=== PATIENT | female | born 1945 | race Caucasian/White ===

== ENCOUNTER 2018-01-09 08:17 | Observation (INO) | payer OTHER ==
[~2018-01-09] VITALS: Ht 162.6 cm; Wt 105.2 kg
[2018-01-09] VITALS (15 sets, daily range): BP systolic 138–168; BP diastolic 45–77
[~2018-01-09 08:17] MED LIST: ALDACTONE50 MG PO; ALLOPURINOL 10100 M1 PO; COZAAR100 MG PO; FLEXERIL PO; LOPID600 MG PO; TOPROL XL25 MG PO; TRAZODONE HCL50 MG PO
[2018-01-09 09:03] LABS: HEMATOCRIT 37.4 % (37.0-47.0); HEMOGLOBIN 12.6 gm/dL (12.0-15.0); MCH 32.8 pg (26.0-34.0); MCHC 33.5 g/dL (28.0-37.0); MCV 97.9 fL (80.0-100.0); MPV 8.2 fl. (7.2-11.1); RBC 3.83 mil/uL (4.20-5.00); RDW-CV 13.7 % (10.5-14.5); WBC 4.6 thou/uL (4.0-11.0)
[2018-01-09 09:22] LABS: APTT 22.7 Seconds (25.0-31.3); INR 1.1; PROTIME 10.3 Seconds (9.20-11.50)
[2018-01-09 09:25] LABS: ANION GAP 9 mmol/L (7-16); BUN 27 mg/dL (7-18); CHLORIDE 107 mmol/L (98-107); CO2 25 mmol/L (21-32); CREATININE 1.1 mg/dL (0.6-1.3); GLUCOSE 119 mg/dL (70-99); POTASSIUM 4.3 mmol/L (3.5-5.1); SODIUM 141 mmol/L (136-145)
[2018-01-09 09:30] LABS: ALBUMIN 3.5 g/dL (3.4-5.0); ALKALINE PHOSPHATASE 63 U/L (46-116); CHOLESTEROL 206 mg/dL (<200); HDL CHOLESTEROL 42 mg/dL (>40); LDL CHOLESTEROL 146 mg/dL (<100); SGOT 28 U/L (15-37); SGPT 46 U/L (30-65); TC:HDL 4.9 Ratio (Not establshd); TOTAL BILIRUBIN 0.5 mg/dL (<0.1-1.0); TOTAL PROTEIN 6.9 g/dL (6.4-8.2); TRIGLYCERIDE 93 mg/dL (<150); VLDL 19 mg/dL (<40)
[2018-01-09 09:31] LABS: SERUM ASSESSMENT Clear
--- NOTE | 2018-01-09 11:33 | EKG ---
[place] [address] ELECTROCARDIOGRAM REPORT Name: MARK HINDS Room: [facility]#: [id number] Admission: 01/09/18 Attend Phys: Bertin Van MD Discharge: Date of : 47 Report #: [id number] THIS REPORT FOR: //name// [facility] Test Date: 2018-01-09 Test Time: 09:46:33 Pat Name: MARK HINDS Department: Room: Gender: F Quarter Backer: : 1945 Requested By: Bertin Van Order Number: [id number] Reading MD: Bertin Van Measurements Intervals [place] Rate: 70 P: 74 [place]: 193 QRS: 22 QRSD: 102 T: -19 QT: 409 QTc: 442 Interpretive Statements Sinus rhythm Low voltage, precordial leads Borderline repolarization abnormality No previous ECG available for comparison Electronically Signed On 01-09-2018 11:33:09 CDT by Bertin Van [email or web address] <ELECTRONICALLY SIGNED> By: Bertin Van MD, [facility] 01/09/18 1133 Bertin Van MD, [facility] /EPI
--- NOTE | 2018-01-09 17:13 | CARD ---
[address] [address] CARDIAC CATH REPORT Name: MARK HINDS Room: [address] IN [facility]#: [id number] Admission: 01/09/18 Attend Phys: Bertin Van MD Discharge: Date of : 47 Report #: [id number] THIS REPORT FOR: //name// APPROVED REPORT Study performed: 01/09/2018 08:23:17 Patient Details Patient Status: Out-Patient Room #: 222 The patient is a 72 year-old female Event Personnel Bertin Van Splunk Dashboard Developer, Melanie Puentes RN Packaging Supervisor, Shiv Joseph (R) Monitor, Monalisa Martinez Scrub, Shruti Fan RTR Scrub, Santosh Celestin Web Analytics Developer Procedures Performed PTCA Single Vessel LAD Indication Dyspnea Risk Factors Hypercholesterolemia, Hypertension Admission/Lab Medications/Medications given during procedure Aspirin, Glycoprotein IllbIlla Inhibitors, Heparin Unfract. Procedure Narrative The patient was brought electively to the Cardiac Catheterization Laboratory and was prepped and draped in a sterile manner. The right wrist was infiltrated with 1% Lidocaine subcutaneous anesthesia. A Slender Glidesheath sheath was inserted into the right radial artery. Coronary angiography was performed using coronary diagnostic catheters. The right coronary system was accessed and visualized with a Diagnostic 3DRC 5fr catheter. The left coronary system was accessed and visualized with a Diagnostic DCR: Hartshorne 4.0 5fr catheter. The left ventricle was accessed and visualized with a Diagnostic PC: Angled Pig 5fr catheter. Left ventricular/Aortic Valve gradient assessed via catheter pullback. Left ventriculogram was performed in NICHOLS projection. Closure device was deployed with a 6 Fr Vasc-Band Lng 27cm. The patient tolerated the procedure well and there were no complications associated with the procedure[place] [address] CARDIAC CATH REPORT Name: MARK HINDS Room: [address] IN ..#: [id number] Admission: 01/09/18 Attend Phys: Bertin Van MD Discharge: Date of : 47 Report #: [id number] hematoma. Intraoperative Conscious Sedation Sedation start time: 10:24 Case end Time: 12:29 Fentanyl 75 mcg Versed 5 mg Fluoro Time: 27.0 minutes Dose: DAP 228854 cGycm2 3997 mGy Contrast Type and Amount: Omnipaque 345 ml Coronary Angiography The patient's coronary anatomy is right dominant. Diagnostic Cath Left Main normal LAD prox. 80-90%, heavily calicifed eccentric stenosis, mid 70% x 2, the distal portion involves ositium of diagonal #2, distal LAD mild disease,<30% Diagonal 1 large , normal Diagonal 2 medium to large, normal Circumflex mild proximal disease, mid body is normal , large vessel overall OM1 ostial 40% OM2 very tortuous, moderate distal disease 50% diffusely Right Coronary occluded mid body R PDA larger vessel , seen with left to right collaterals Left Ventriculography The left ventricle is normal in size with normal contractility. The left ventricular ejection fraction is estimated to be 60-65%. severe mitral annular calcification mild aortic stenosis, peak to peak gradient <15mmHg Hemodynamics The aortic pressure is 106/55 mmHg with a mean of 73 mmHg. The left ventricular pressure is 128/3 mmHg with a mean of mmHg. The left ventricular end diastolic pressure is 14 mmHg. Pullback from the left ventricle to the aorta revealed a 15 mm gradient across the aortic valve. PCI Technique Lesion Anticoagulation was achieved with Heparin. iv aggrastat given bolus only Patient was preloaded with Plavix. Percutaneous coronary intervention was performed on the mid left anterior descending artery segment. The lesion stenosis prior to intervention was 70%% [place] [address] CARDIAC CATH REPORT Name: MARK HINDS Room: [address] IN [facility]#: [id number] Admission: 01/09/18 Attend Phys: Bertin Van MD Discharge: Date of : 47 Report #: [id number] flow. A 6FR XB 3.5 100CM Guide Catheter was used to engage the lm ostium. A IG: BMW 190cm Interventional Guidewire was used to cross the lesion. BALLOON DILATION A Balloon catheter Trek RX 2.5 X 8 was inserted and inflated up to 8atm for 18seconds. Repeat angiography revealed the following post-dilatation results: 0% stenosis. Final angiography reveals 0 % stenosis with TATIANNA 3 flow. PCI Technique Lesion 2 Percutaneous Coronary Intervention was performed on the left anterior descending artery segment. Patient was preloaded with Plavix. Percutaneous coronary intervention was performed on the mid lad. The lesion stenosis prior to intervention was 80% with TATIANNA 3 flow. A 6FR XB 3.5 100CM Guide Catheter was used to engage the lm ostium. A IG: BMW 190cm Interventional Guidewire was used to cross the lesion. Balloon Dilation A Balloon catheter Trek RX 2.5 X 8 was inserted and inflated up to 16atm for 12seconds. Repeat angiography revealed the following post-dilatation results: 70% stenosis. Final angiography reveals 70 % stenosis with TATIANNA 3 flow. Comments Unable to advance bare metal stent to area of stenosis despite deep throat of guide, arthur wire, and predilatation. Difficulty appeared to be secondary to tortuosity and calcification. PTCA only performed. If pt continues to have angina, consider femoral approach and guideliner catheter. Conclusion 1. Severe disease involving mid LAD 2. Occluded RCA , well collateralized, a dominant vessel 3. Mild Aortic stenosis 4. Known Moderate Mitral stenosis 5. Normal LV systolic function 6. PTCA only of 2 lesions in lad, since a stent could not be advanced to area of stenosis Recommendations [place] [address] CARDIAC CATH REPORT Name: OSEIFROYMARK Greco Room: [address] .R.#: [id number] Admission: 01/09/18 Attend Phys: Bertin Van MD Discharge: Date of : 47 Report #: [id number] Diagnostic Cath Approved by: Bertin Van MD Date/Time: <ELECTRONICALLY SIGNED> By: Santosh Celestin MD, FACC 01/09/18 1713 1713 1713Dmorro Celestin MD, FACC /INF
--- NOTE | 2018-01-09 18:48 | NUR ---
PT UP FROM AUTO BODY WORKER C/O PAIN ACHING RIGHT KNEE REPLACEMENT AND NEEDS THE OTHER DONE IV CONT 125/H NS UP SBA SLIGHTLY UNSTEADY AT BEDSIDE TREMORS TO BILAT HANDS MORE ON THE RIGHT THAN LEFT CALL LIGHT IN REACH TRANSPARENT DRESSING PUT ON RIGHT RADIAL SITE SMALL HEMATOMA PURPLE IN COLOR UNDERNEATH
[2018-01-10] VITALS: BP 142/58
[2018-01-10 04:00] VITALS: BP 127/37
--- NOTE | 2018-01-10 04:36 | NUR ---
ASSUMED CARE AROUND 1930. PT A/OX4, HUGHES. TELE MONITOR TRACING SR. VSS. ONLY PAIN REPORTED WAS H/A LAST NIGHT, PRN APAP GIVEN. ON ROOM AIR. IV SALINE LOCKED AT THIS TIME. RIGHT RADIAL SITE DRSG C/D/I, INSTRUCTED TO BE CAUTIOUS WITH THAT HAND/WRIST. BRUISING NOTED AROUND, BUT SOFT. SEE CHARTING. CALL LIGHT IN REACH, WILL CONTINUE WITH PLAN OF CARE.
[2018-01-10 04:54] LABS: HEMATOCRIT 31.2 % (37.0-47.0); MCH 32.8 pg (26.0-34.0); MCHC 33.7 g/dL (28.0-37.0); MCV 97.3 fL (80.0-100.0); MPV 8.5 fl. (7.2-11.1); RBC 3.21 mil/uL (4.20-5.00); RDW-CV 13.8 % (10.5-14.5)
[2018-01-10 04:58] LABS: HEMOGLOBIN 10.5 gm/dL (12.0-15.0)
[2018-01-10 05:12] LABS: CALCIUM 8.5 mg/dL (8.5-10.1); CREATININE 1.1 mg/dL (0.6-1.3); POTASSIUM 4.3 mmol/L (3.5-5.1)
[2018-01-10 08:00] VITALS: BP 134/77
[2018-01-10 08:36] VITALS: BP 164/73
--- NOTE | 2018-01-10 10:42 | EKG ---
[place] [address] ELECTROCARDIOGRAM REPORT Name: MARK HINDS Room: [address]R.#: [id number] Admission: 01/09/18 Attend Phys: Bertin Van MD Discharge: Date of : 47 Report #: [id number] THIS REPORT FOR: //name// [facility] Test Date: 2018-01-09 Test Time: 13:51:13 Pat Name: MARK HINDS Department: Room: [address] Gender: F Banana Expert: : 1945 Requested By: Bertin Van Order Number: [id number] Reading MD: Santosh Celestin Measurements Intervals [place] Rate: 63 P: 57 [place]: 196 QRS: 41 QRSD: 102 T: -32 QT: 433 QTc: 444 Interpretive Statements Sinus rhythm Low voltage, precordial leads Borderline repolarization abnormality Compared to ECG 01/09/2018 09:46:33 No significant changes Electronically Signed On 01-10-2018 10:42:25 CDT by Santosh Celestin [email or web address] <ELECTRONICALLY SIGNED> By: Santosh Celestin MD, FACC 01/10/18 1042 1351 1351 Santosh Celestin MD, [facility] /EPI
--- NOTE | 2018-01-10 10:49 | EKG ---
[place] [address] ELECTROCARDIOGRAM REPORT Name: MARK HINDS Fannie Room: [address]#: [id number] Admission: 01/09/18 Attend Phys: Bertin Van MD Discharge: Date of : 47 Report #: [id number] THIS REPORT FOR: //name// [facility] Test Date: 2018-01-10 Test Time: 08:13:40 Pat Name: MARK HINDS Department: Room: [address] Gender: F Client Advocate: : 1945 Requested By: Bertin Van Order Number: [id number] Reading MD: Santosh Celestin Measurements Intervals [place] Rate: 69 P: 64 [place]: 189 QRS: 39 QRSD: 107 T: -21 QT: 416 QTc: 446 Interpretive Statements Sinus rhythm Low voltage, precordial leads Borderline repolarization abnormality Baseline wander in lead(s) II,aVF Compared to ECG 01/09/2018 09:46:33 No significant changes Electronically Signed On 01-10-2018 10:49:29 CDT by Santosh Celestin [email or web address] <ELECTRONICALLY SIGNED> By: Santosh Celestin MD, [facility] 01/10/18 1049 2 2 Santosh Celestin MD, [facility] /EPI
[2018-01-10 12:15] VITALS: BP 164/73
[2018-01-10] MEDS ORDERED: PLAVIX 75 MG TA75 M1 PO (12:46)
[2018-01-10] MEDS ORDERED: ASPIR 8181 M1 PO (12:46)
[2018-01-10] MEDS ORDERED: TYLENOL325 MG PO (12:48)
[2018-01-10] MEDS ORDERED: NITROGLYCERIN0.4 MG SUBLING (12:48)
[2018-01-10] MEDS ORDERED: LIPITOR 20 MG T20 M1 PO (12:49)
[2018-01-10] MEDS ORDERED: ACETAMINOPHEN-1 EAC1 PO (12:51)
--- NOTE | 2018-01-10 13:10 | NUR ---
ASSESSMENT COMPLETED REFER TO COMPUTER CHARTING. TECHNOLOGY SUPPORT ANALYST TRACKING SR. PATIENT REPORTING NO PAIN, NAUSEA OR SHORTNESS OF BREATH. BED IN LOW AND LOCKED POSITION. CALL LIGHT WITHIN REACH. IV SALINE LOCKED AND ON ROOM AIR. DISCHARGE ORDERS RECIEVED. DISCHARGE INSTRUCTIONS GIVEN TO PATIENT AND SPOUSE. REPORTING NO QUESTIONS OR CONCERNS AT THIS TIME. IV AND TECHNOLOGY SUPPORT ANALYST DISCONTINUED AND REMOVED. ALL PERSONAL BELONGINGS SENT WITH PATIENT. PATIENT TAKEN TO THE FRONT DOORS VIA WHEEL CHAIR BY NURSING STAFF.
--- NOTE | 2018-01-12 18:19 | D ---
[address] [address] DISCHARGE SUMMARY Name: MARK HINDS Room: [address] Mulugeta Samuels#: [id number] Admission: 01/09/18 Attend Phys: Bertin Van MD Discharge: 01/10/18 Date of : 47 Report #: [id number] THIS REPORT FOR: //name// CC: ANTONI BARBOUR DO Antoni Van DATE OF SERVICE: 01/10/2018 DISCHARGE DIAGNOSES: 1. Coronary artery disease. 2. Aortic stenosis. 3. Mitral stenosis. 4. Hypertension. 5. Hyperlipidemia. CONSULTANTS: None. PROCEDURES: Left heart catheterization with percutaneous transluminal coronary angioplasty of the left anterior descending artery via the radial approach. HISTORY OF PRESENT ILLNESS: The patient is a 72-year-old white female who was brought to the outpatient department to undergo a cardiac catheterization. The patient has no history of heart disease. Recently, she complained of exertional dyspnea and her ECG was noted to be abnormal. She was referred to my partner, Dr. Van. Because of her risk factors, he recommended a stress test. She was also noted to have a heart murmur, so we recommended echocardiogram. The echocardiogram was done on 12/30/2017, it showed a normal ejection fraction, left atrial enlargement, evidence of mild aortic stenosis, moderate aortic insufficiency. There is evidence of at least mild mitral stenosis with left ventricular hypertrophy. She also underwent a Cardiolite stress test that showed an anterior defect at rest that worsened with vasodilator stress. This was consistent with ischemia. He therefore recommended a cardiac catheterization. The patient denies history of chest pain. She does have occasional racing of her heart, but she has had no syncope. PAST MEDICAL HISTORY: Significant for previous cholecystectomy, hysterectomy, knee replacement, tonsillectomy, hypertension, and hyperlipidemia. She complains that she hurts all over and was seen by paperboard boxes estimator who felt she had fibromyalgia syndrome. MEDICATIONS: Her current medications include allopurinol, Flexeril, Lopid, losartan, metoprolol, spironolactone, Desyrel. In the past, she apparently was on a statin drug, but it was discontinued because of [place] [address] DISCHARGE SUMMARY Name: MARK HINDS [address] [id number] Admission: 01/09/18 Attend Phys: Bertin Van MD Discharge: 01/10/18 Date of : 47 Report #: [id number] ALLERGIES: SHE ALSO HAS AN ALLERGY TO MORPHINE AND PENICILLIN. PHYSICAL EXAMINATION: GENERAL: Revealed an elderly female. VITAL SIGNS: Blood pressure 130/80, pulse is 66. CHEST: Clear to auscultation. CARDIOVASCULAR: Regular rate and rhythm, grade 3 systolic ejection murmur. ABDOMEN: Soft. EXTREMITIES: No edema. SKIN: Warm and dry. RADIOLOGICAL DATA: Her ECG showed a sinus rhythm with nonspecific ST and T-wave change. LABORATORY DATA: Revealed sodium of 140, BUN 23, creatinine 1.1. Her cholesterol was 206, triglyceride 93, HDL 42, LDL 146. White blood cell count 5.0 and hemoglobin 12.6. HOSPITAL COURSE: The patient was brought to the outpatient department. Dr. Van performed cardiac catheterization from the right radial artery. Results showed severe coronary artery disease. She had a chronic occlusion of the right coronary artery that was filled by collaterals. The left anterior descending artery had what appeared to be a very eccentric 90% stenosis just after the first diagonal branch. Prior to the second diagonal branch, there was a 70% tubular narrowing. After the small second diagonal branch, there was another 70% tubular stenosis. The circumflex had no high-grade disease. The plan was to perform stenting of the LAD even though she had no history of angina, but she did complain of exertional dyspnea and had an abnormal Cardiolite. The patient was given heparin and Aggrastat. I then performed balloon angioplasty of the 90% LAD after the first diagonal branch and the second 70% stenosis. Unfortunately, because of the calcification and tortuosity, I was unable to place stents. This was despite using a arthur wire and deep throating of the guiding catheter. The patient tolerated the procedure well. Despite efforts, it was decided to abandon further efforts at placing a stent. I attempted placing a bare metal stent. Unfortunately, the patient tolerated the procedure well. She was loaded with Plavix. ____ band was placed over the right radial artery. The following day, she was ambulating, had no further complaints. She had some ecchymosis of the right wrist, but there was no significant hematoma. She has had no chest pain, shortness of breath, arrhythmias. She was discharged to continue her home medications that include allopurinol 100 mg a day, Flexeril 10 mg a day, Lopid 600 mg twice a day, losartan 100 mg a day, metoprolol XL 25 mg a day, spironolactone 25 mg a day, Desyrel 50 mg a day. In addition, she was started on aspirin 81 mg a day and Plavix 75 mg a day following balloon angioplasty. To lower her LDL, she was started on Lipitor 40 mg a day. She was to contact my office if she had increasing joint aches in her muscles. She was given Plavix 75 [place] [address] DISCHARGE SUMMARY Name: MARK HINDS Room: [address] Mulugeta Samuels#: [id number] Admission: 01/09/18 Attend Phys: Bertin Van MD Discharge: 01/10/18 Date of : 47 Report #: [id number] orally following balloon angioplasty for coronary artery disease and she was given nitroglycerin to take as needed for chest pain. She was scheduled to return to see my nurse practitioner in 1 week for inspection of her right wrist. She plans to see Dr. Van in 1 month. Most likely, he will proceed with JONY to assess her mitral valve stenosis. If she begins to have angina or continues to have dyspnea, I would attempt stenting of the LAD, perhaps using the femoral approach for additional support, atherectomy or perhaps a Guideliner. Her prognosis is guarded due to her diffuse coronary artery disease. She was discharged to return to the care of Dr. Bullard for routine medical care. I did recommend she enroll in cardiac rehabilitation. At the time of discharge, she was ambulating, had no further complaints. Additional lab work after her procedure included hemoglobin 10.5 and there was no drop in hemoglobin or ECG changes. At the time of discharge, she had a blood pressure of 140/70 with pulse 60. <ELECTRONICALLY SIGNED> By: Santosh Celestin MD, FACC 01/12/18 1819 1129 [email or web address] Celestin MD, FACC /nt
[2018-01-30] MEDS ORDERED: CRESTOR10 MG PO (08:45)
== END 2018-01-10 13:21 | disposition home or self-care (01) ==
LOC: M.CL 08:17 → M.2W 13:03 → M.TBA-CV 13:03 → M.2W 13:03
PROVIDERS: ADMIT Internal Medicine Cardiovascular Disease
DX: I25.10 Atherosclerotic heart disease of native coronary artery without angina pectoris (principal); I35.0 Nonrheumatic aortic (valve) stenosis; I05.0 Rheumatic mitral stenosis; I10 Essential (primary) hypertension; E78.5 Hyperlipidemia, unspecified; I35.1 Nonrheumatic aortic (valve) insufficiency; I51.7 Cardiomegaly; Z98.890 Other specified postprocedural states; Z90.89 Acquired absence of other organs

== ENCOUNTER → 2018-01-30 | Outpatient (CLI) | payer OTHER ==
[2018-01-30] VITALS (13 sets, daily range): BP systolic 112–173; BP diastolic 37–90
[~2018-01-30] MED LIST changes: +ACETAMINOPHEN-1 EAC1 PO; +ASPIR 8181 M1 PO; +CRESTOR10 MG PO; +EFFIENT10 MG PO; +LIPITOR 20 MG T20 M1 PO; +NITROGLYCERIN0.4 MG SUBLING; +PLAVIX 75 MG TA75 M1 PO; +TYLENOL325 MG PO
--- NOTE | 2018-01-30 13:37 | TEE ---
[place] [address] TRANSESOPHAGEAL ECHOCARDIOGRAM Name: LIZETMARK Greco Room: [facility]#: [id number] Admission: 01/30/18 Attend Phys: Bertin Van, Discharge: Date of : 47 Date of Service: 01/30/18 1336 Report #: [id number] THIS REPORT FOR: //name// APPROVED REPORT Study performed: 01/30/2018 08:47:26 EXAM: Transesophageal Echocardiogram Patient Location: Out-Patient Status: routine BSA: 2.13 HR: 78 bpm BP: 173/84 mmHg Rhythm: NSR Other Information Study Quality: Good Indications Mitral Valve Disease Echo Enhancing Agent Indication: Rule out Shunt Agent(s) / Amount(s) Used: Agitated Saline 10 cc Procedure After obtaining informed consent, patient underwent transesophageal echo in the [employer]. Type of Sedation : Conscious Sedation Sedation was administered by Jennifer Hanna RN. Sedation start time: 935 Case end Time: 948 Sedation was achieved intravenously with: Versed (4) Fentanyl (50) Transesophageal probe was inserted and advanced into esophagus without difficulty by Bertin Van MD, FACC. Echo enhancement indication: R/O Septal defect. Echo enhancement agent administered: Agitated Saline The JONY was performed without complications. Throughout the procedure, the blood pressure, pulse oximetry, cardiac rhythm, and rate were monitored. The patient tolerated the procedure without adverse effects. Recovery from conscious sedation was uneventful and vital signs were [place] [address] TRANSESOPHAGEAL ECHOCARDIOGRAM Name: MARK HINDS Room: [facility]#: [id number] Admission: 01/30/18 Attend Phys: Bertin Van, Discharge: Date of : 47 Date of Service: 01/30/18 1336 Report #: [id number] The left ventricle is normal size. There is normal LV segmental wall motion. Mild to moderate concentric left ventricular hypertrophy. There is no ventricular septal defect visualized. Left ventricular systolic function is normal. The left ventricular ejection fraction is within the normal range. No left ventricle thrombus noted on this study. LVEF is 65%. Right Ventricle The right ventricle is normal size. The right ventricular systolic function is normal. Atria Left atrium is moderately dilated. No thrombus is visualized in the left atrium or appendage. Interatrial septum is intact without evidence of ASD or PFO. The right atrium size is normal. Aortic Valve Mild aortic valve sclerosis. Mild aortic regurgitation. Mild aortic stenosis.Planimeter area 1.86cm2 Mitral Valve Severe calcification of annulus, thickened leaflets. The posterior leaflet is redundant. Mild to Moderate mitral regurgitation. Moderate mitral stenosis.Mean gradient 8.4mmhg Tricuspid Valve The tricuspid valve is normal in structure. Moderate tricuspid regurgitation. Pulmonic Valve The pulmonary valve is normal in structure. Trace pulmonic regurgitation. Great Vessels The aortic root is normal in size. Pericardium There is no pericardial effusion. <Conclusion> LVEF is 65%. Mild aortic stenosis. Mild aortic regurgitation. Moderate mitral stenosis.Mean gradient 8.4mmhg Mild to Moderate mitral regurgitation. There is normal [place] [address] TRANSESOPHAGEAL ECHOCARDIOGRAM Name: MARK HINDS Room: [facility]#: [id number] Admission: 01/30/18 Attend Phys: Bertin Van, Discharge: Date of : 47 Date of Service: 01/30/181335 Report #: [id number] Left atrium is moderately dilated. No thrombus is visualized in the left atrium or appendage. Interatrial septum is intact without evidence of ASD or PFO. <ELECTRONICALLY SIGNED> By: Bertin Van MD, [facility] 01/30/181335 35 35 Bertin Van MD, FACC /INF
== END | disposition home or self-care (01) ==
LOC: M.CL 08:19
DX: I08.0 Rheumatic disorders of both mitral and aortic valves (principal); I10 Essential (primary) hypertension; Z79.01 Long term (current) use of anticoagulants; Z88.0 Allergy status to penicillin; Z88.8 Allergy status to other drugs, medicaments and biological substances; Z79.82 Long term (current) use of aspirin; Z79.899 Other long term (current) drug therapy

== ENCOUNTER 2018-02-05 11:42 | Inpatient (IN) | payer OTHER ==
[~2018-02-05] VITALS: Ht 165.1 cm; Wt 110.2 kg
[2018-02-05] VITALS (29 sets, daily range): BP systolic 85–139; BP diastolic 36–55
--- NOTE | ~2018-02-05 | H ---
[address] [address] HISTORY AND PHYSICAL Name: MARK HINDS Room: [address]#: [id number] Admission: 02/05/18 Attend Phys: Robbi Reed MD, Discharge: 02/07/18 Date of : 47 Report #: [id number] THIS REPORT FOR: //name// Please refer to the History and Physical performed in the physician's office. By: 0858Medical Records Staff CHAN /HAKAN
[~2018-02-05 11:42] MED LIST changes: -EFFIENT10 MG PO
[2018-02-05 12:50] LABS: HEMATOCRIT 37.9 % (37.0-47.0); HEMOGLOBIN 12.8 gm/dL (12.0-15.0); MCH 32.8 pg (26.0-34.0); MCHC 33.8 g/dL (28.0-37.0); MPV 8.1 fl. (7.2-11.1); RBC 3.91 mil/uL (4.20-5.00); RDW-CV 13.5 % (10.5-14.5); WBC 5.1 thou/uL (4.0-11.0)
[2018-02-05 12:56] LABS: CALCIUM 9.5 mg/dL (8.5-10.1); CREATININE 1.2 mg/dL (0.6-1.3); POTASSIUM 4.2 mmol/L (3.5-5.1)
[2018-02-05 12:57] LABS: APTT 24.3 Seconds (25.0-31.3); INR 1.1; PROTIME 10.5 Seconds (9.20-11.50)
[2018-02-05 13:01] LABS: ALBUMIN 3.8 g/dL (3.4-5.0); TOTAL BILIRUBIN 0.4 mg/dL (<0.1-1.0); TOTAL PROTEIN 7.6 g/dL (6.4-8.2)
--- NOTE | 2018-02-05 17:46 | NUR ---
RECEIVED REPORT FROM KEENAN IN [employer] INSPECTOR AND ASSUMED CARE OF PT @ 4410.PT IS A/O,VSS,TRACING SR ON THE MONITOR.LUNG SOUNDS ARE CLEAR.LAST BM WAS YESTERDAY.IV LEFT AC PATENT WITH NS RUNNING @ 125ML/HR.PT IS CALM AND COOPERATIVE WITH NO C/O PAIN AT TIME OF ASSESSMENT.PT IS BEDREST UNTIL 2138 PER POST CATH ORDERS.PT LEFT RESTING IN BED WIHT FAMILY AT BEDSIDE.CALL LIGHT AND FALL PRECAUTIONS IN PLACE.POST CATH VITALS COMPLETED.CATH SITE CLEAN,DRY AND INTACT.PT INFORMED OF PLAN OF CARE AND COMMUNICATES UNDERSTANDING.HOURLY ROUNDING COMPLETED FOR PT SAFETY.WILL CONTINUE TO MONITOR FOR DURATION OF SHIFT.
--- NOTE | 2018-02-05 18:06 | EKG ---
[place] [address] ELECTROCARDIOGRAM REPORT Name: MARK HINDS Room: [address] IN [facility].#: [id number] Admission: 02/05/18 Attend Phys: Robbi Reed MD, Discharge: Date of : 47 Report #: [id number] THIS REPORT FOR: //name// [facility] Test Date: 2018-02-05 Test Time: 13:33:31 Pat Name: MARK HINDS Department: Room: Gender: F Dental Lab Technician: : 1945 Requested By: Robbi Reed Order Number: [id number] Reading MD: Joseph Ross Measurements Intervals [place] Rate: 73 P: 72 [place]: 194 QRS: 42 QRSD: 101 T: -27 QT: 400 QTc: 441 Interpretive Statements Sinus rhythm Atrial premature complex Inferior infarct, age indeterminate, possible Compared to ECG 01/10/2018 08:13:40 Atrial premature complex(es) now present Myocardial infarct finding now present Electronically Signed On 02-05-2018 18:06:25 CDT by Joseph Ross [email or web address] <ELECTRONICALLY SIGNED> By: Joseph Ross MD, FACC 02/05/18 1806 1333 1333 Joseph Ross MD, [facility] /EPI
--- NOTE | 2018-02-05 18:07 | EKG ---
[place] [address] ELECTROCARDIOGRAM REPORT Name: MARK HINDS Room: [address] IN .R.#: [id number] Admission: 02/05/18 Attend Phys: Robbi Reed MD, Discharge: Date of : 47 Report #: [id number] THIS REPORT FOR: //name// [facility] Test Date: 2018-02-05 Test Time: 16:18:18 Pat Name: MARK HINDS Department: Room: Gender: F Manager Rail: [facility] : 1945 Requested By: Robbi Reed Order Number: [id number] Reading MD: Joseph Ross Measurements Intervals [place] Rate: 82 P: 46 SC: 202 QRS: 41 QRSD: 100 T: -31 QT: 398 QTc: 465 Interpretive Statements Sinus rhythm Atrial premature complexes nonspecific ST-T wave changes, consider ischemia Borderline low voltage, extremity leads Borderline repolarization abnormality Compared to ECG 01/10/2018 08:13:40 Atrial premature complex(es) now present Electronically Signed On 02-05-2018 18:07:11 CDT by Joseph Ross [email or web address] <ELECTRONICALLY SIGNED> By: Joseph Ross MD, FACC 02/05/18 1807 1618 1618 Joseph Ross MD, [facility] /EPI
[2018-02-06] VITALS (31 sets, daily range): BP systolic 71–131; BP diastolic 19–54
[2018-02-06 04:28] LABS: MCH 33.6 pg (26.0-34.0); MCHC 34.4 g/dL (28.0-37.0); MCV 97.7 fL (80.0-100.0); MPV 8.1 fl. (7.2-11.1); RBC 2.77 mil/uL (4.20-5.00); RDW-CV 13.5 % (10.5-14.5); WBC 6.9 thou/uL (4.0-11.0)
--- NOTE | 2018-02-06 04:51 | NUR ---
TRANSFERRED TO ICU BED 5 AT 1909, DR RAMEY AT BEDSIDE. R GROIN CATH SITE NOTED TO BRUISED WITH SMALL HEMATOMA LATERAL TO INSERTION SITE, DR RAMEY STATED IT WAS SOMEWHAT SMALLER THAN IT HAD BEEN PRIOR TO TRANSFER TO ICU. BP SOFT, 2L NS GIVEN WO ORDERED. DR RAMEY CALLED TO CHECK NO PT AT 2044, BP STILL SOFT BUT MAP >60. PER DR RAMEY, NS INCREASED TO 250ML/HR, IMMOBILIZATION TO EXTEND UNTIL MORNING, ALICEA CATHETER PLACED. HE STATED THAT IF BP CONTINUED TO TREND DOWNWARD, MAY START DOPAMINE AT 5MCG/KG/MIN. AT 299 PTS MAP <60 X 3 CONSECUTIVE READINGS, DOPAMINE INITIATED PER ORDER. SHORTLY AFTER DOPAMINE STARTED PT BECAME NAUSEATED AND REPORTED FEELING HOT. MAP DROPPED TO <50. CALL PLACED TO DR RAMEY, PER HIS ORDER DOPAMINE DROPPED TO 2.5MCG/KG/MIN, IVF TO REMAIN AT 250ML/HR, AND CLOSE MONITORING OF URINE OUTPUT TO DETERMINE ADEQUACY OF PERFUSION. AT THAT TIME ALICEA WAS EMPTIED, ONE HOUR LATER 50ML EMPTIED FROM ALICEA. BP NOW TRENDING UPWARD SLOWLY. PT HAS DENIED CHEST PAIN AND SOA THROUGHOUT THE NIGHT. CALL LIGHT WITHIN REACH.
[2018-02-06 04:52] LABS: HEMOGLOBIN 9.3 gm/dL (12.0-15.0)
[2018-02-06 05:02] LABS: ALBUMIN 2.7 g/dL (3.4-5.0); ALKALINE PHOSPHATASE 49 U/L (46-116); ANION GAP 9 mmol/L (7-16); BUN 21 mg/dL (7-18); CALCIUM 7.6 mg/dL (8.5-10.1); CHLORIDE 110 mmol/L (98-107); CHOLESTEROL 97 mg/dL (<200); CO2 22 mmol/L (21-32); GLUCOSE 135 mg/dL (70-99); HDL CHOLESTEROL 33 mg/dL (>40); LDL CHOLESTEROL 36 mg/dL (<100); POTASSIUM 4.2 mmol/L (3.5-5.1); SGOT 25 U/L (15-37); SGPT 26 U/L (30-65); SODIUM 141 mmol/L (136-145); TC:HDL 2.9 Ratio (Not establshd); TOTAL BILIRUBIN 0.5 mg/dL (<0.1-1.0); TOTAL PROTEIN 5.2 g/dL (6.4-8.2); TRIGLYCERIDE 140 mg/dL (<150); VLDL 28 mg/dL (<40)
[2018-02-06 05:05] LABS: SERUM ASSESSMENT CLEAR; TROPONIN-I LEVEL 1.89 ng/mL (<0.06)
--- NOTE | 2018-02-06 10:45 | NUR ---
SPOKE WITH PT. SHE LIVES WITH HER , HAS BEEN ACTIVE AND INDEP. PT HAS SUPPORTIVE FAMILY. PT DENIES ANY DISCHARGE NEEDS. DISCUSSED ROLE OF CASE MGT, WILL CONTINUE TO FOLLOW.
--- NOTE | 2018-02-06 14:00 | NUR ---
PATIENT TRANSFERED TO TELE ROOM 201. REPORT GIVEN. VSS. ASSESSMENT CHARTED. PT UP TO CHAIR WITHOUT COMPLAINTS. CLEAR LIQUID AND HEART HEALTHY DIET BOTH TOLERATED WITHOUT DIFFICULTY. PAIN MINIMAL TO RIGHT GROIN. HEMATOMA SOFT, ECCHYMOSIS TO THE RIGHT GROIN CATH SITE. PULSES 2/2. NO OTHER COMPLAINTS THROUGHOUT THE DAY.
--- NOTE | 2018-02-06 15:10 | 2DMMODE ---
[place] [address] 2 D/M-MODE ECHOCARDIOGRAM Name: MARK HINDS Room: [facility] IN [facility]#: [id number] Admission: 02/05/18 Attend Phys: Fannie Rodriguez Discharge: Date of : 47 Date of Service: 02/06/18 1509 Report #: [id number] THIS REPORT FOR: //name// APPROVED REPORT Study performed: 02/06/2018 08:55:46 EXAM: Comprehensive 2D, Doppler, and color-flow Echocardiogram Patient Location: In-Patient Room #: [facility] Status: routine BSA: 2.15 HR: 90 bpm BP: 120/50 mmHg Rhythm: NSR Other Information Study Quality: Good Indications Hypotension CAD Chest Pain 2D Dimensions LVEF(%): 72.65 (>50%) IVSd: 12.90 (7-11mm) LVOT Diam: 18.99 (18-24mm) LVDd: 47.13 mm PWd: 11.03 (7-11mm) LVDs: 27.46 (25-40mm) Aguillon's LVEF: 72.65 % Volumes Left Atrial Volume (Systole) LA ESV Index: 38.40 mL/m2 Aortic Valve AoV Peak Kory.: 2.70 m/s AO Peak Gr.: 29.15 mmHg LVOT Max P.01 mmHg AO Mean Gr.: 17.08 mmHg LVOT Mean P.14 mmHg LVOT Max V: 1.23 m/s AO V2 VTI: 53.41 cm LVOT Mean V: 0.83 m/s JANNET (VTI): 1.41 cm2 LVOT V1 VTI: 26.64 cm AI Jerome: 2.26 m/s2 AI PHT: 426.35 [place] [address] 2 D/M-MODE ECHOCARDIOGRAM Name: MARK HINDS Room: [address] ADM IN .R.#: [id number] Admission: 02/05/18 Attend Phys: Fannie Rodriguez Discharge: Date of : 47 Date of Service: 02/06/18 1509 Report #: [id number] Mitral Valve MV Mean Gr.: 9.79 mmHg E/A Ratio: 1.37 MV Decel. Time: 224.32 ms MV E Max Kory.: 2.00 m/s MV PHT: 65.05 ms MVA (PHT): 3.38 cm2 TDI E/Lateral E': 22.22 E/Medial E': 22.22 Medial E' Kory.: 0.09 m/s Lateral E' Kory.: 0.09 m/s Pulmonary Valve PV Peak Kory.: 1.20 m/s PV Peak Gr.: 5.80 mmHg Tricuspid Valve RAP Estimate: 5.00 mmHg TR Peak Gr.: 42.44 mmHg RVSP: 47.44 mmHg PA Pressure: 47.44 mmHg Left Ventricle The left ventricle is normal size. There is normal LV segmental wall motion. There is normal left ventricular wall thickness. Left ventricular systolic function is normal. The left ventricular ejection fraction is within the normal range. LVEF is 65%. The left ventricular diastolic function is normal. Right Ventricle The right ventricle is normal size. The right ventricular systolic function is normal. Atria Left atrium is moderately dilated. The right atrium size is normal. Aortic Valve Mild aortic valve sclerosis. Mild aortic regurgitation. Mild aortic stenosis. Mitral Valve Severe mitral annular calcification. Mild mitral regurgitation. No evidence of mitral valve stenosis. Tricuspid Valve The tricuspid valve is normal in structure[place] [address] 2 D/M-MODE ECHOCARDIOGRAM Name: MARK HINDS Room: [address]#: [id number] Admission: 02/05/18 Attend Phys: Fannie Rodriguez Discharge: Date of : 47 Date of Service: 02/06/18 1509 Report #: [id number] regurgitation. Moderate pulmonary hypertension. Pulmonic Valve The pulmonary valve is normal in structure. There is no pulmonic valvular regurgitation. Great Vessels The aortic root is normal in size. IVC is normal in size and collapses with >50% inspiration Pericardium There is no pericardial effusion. <Conclusion> The left ventricle is normal size. There is normal left ventricular wall thickness. Left ventricular systolic function is normal. The left ventricular ejection fraction is within the normal range. LVEF is 65%. The left ventricular diastolic function is normal. The right ventricle is normal size. Left atrium is moderately dilated. Mild aortic valve sclerosis. Mild aortic regurgitation. Mild aortic stenosis. Severe mitral annular calcification. Mild mitral regurgitation. No evidence of mitral valve stenosis. The tricuspid valve is normal in structure. Mild tricuspid regurgitation. Moderate pulmonary hypertension. IVC is normal in size and collapses with >50% inspiration There is no pericardial effusion. There is normal LV segmental wall motion. <ELECTRONICALLY SIGNED> By: Robbi Reed MD, FACC 02/06/18 1509 1509 1509 Robbi Reed MD, FACC /INF
--- NOTE | 2018-02-06 15:23 | EKG ---
[place] [address] ELECTROCARDIOGRAM REPORT Name: MARK HINDS Room: [address] IN [facility]#: [id number] Admission: 02/05/18 Attend Phys: Robbi Reed MD, Discharge: Date of : 47 Report #: [id number] THIS REPORT FOR: //name// [facility] Test Date: 2018-02-06 Test Time: 09:37:36 Pat Name: MARK HINDS Department: Room: Gender: F Last Marker: : 1945 Requested By: Robbi Reed Order Number: [id number] Reading MD: Robbi Reed Measurements Intervals [place] Rate: 80 P: 65 UT: 189 QRS: 32 QRSD: 100 T: -55 QT: 395 QTc: 456 Interpretive Statements Sinus rhythm Atrial premature complexes Low voltage, precordial leads Borderline repolarization abnormality Compared to ECG 02/05/2018 16:18:18 ST (T wave) deviation less pronounced Electronically Signed On 02-06-2018 15:23:04 CDT by Robbi Reed [email or web address] <ELECTRONICALLY SIGNED> By: Robbi Reed MD, [facility] 02/06/18 1523 0937 0937 Robbi Reed MD, [facility] /EPI
--- NOTE | 2018-02-06 18:42 | NUR ---
PT ARRIVED TO ROOM 201 AT APPROX 1440 FROM ICU. PT ORIENTED TO ROOM AND STAFF, THIS RN HAS REVIEWED AND AGREES WITH AM KEVIN. PT DID C/O ALL OVER ARTHRITIS PAIN, TYLENOL 3 GIVEN WITH RELIEF. RIGHT GROIN BRUISED WITH ECCHYMOSIS, IT IS SOFT, SLIGHLY TENDER TO THEY TOUCH. PT UP WITH ASSIST TO BATHROOM USES CALL LIGHT APPROPRIATLY. WILL CONTINUE TO MONITOR.
--- NOTE | 2018-02-06 20:00 | NUR ---
RECEIVED REPORT AND ASSUMED CARE OF PT, ASSESSMENT COMPLETED. FAMILY AT BEDSIDE. PT STATES SHE IS HAVING SOME CHEST SORENESS. DISCUSSED HOW VESSELS ARE OPEN DUE TO STENT PLACED AND COULD BE CAUSING STRETCHING PAIN. PT DENIES ACTUAL CARDIAC TYPE PAIN. TELEMETRY ON SHOWING SR WITH VERY FREQ PAC VS A-FIB. RT GROIN NOTED TO HAVE LG HEMATOMA, ECCHYMOTIC AREA, SOFT TO TOUCH, DRSG DRY AND INTACT. PT VERY TEARFUL, REASSURANCE GIVEN. WILL CONT TO MONITOR AND ASSIST NEEDED.
--- NOTE | 2018-02-06 22:03 | NUR ---
DR RAMEY CALLED CHECKING ON PT, INFORMED OF TEARFUL AND ANXIOUS. ORDER RECEIVED WITH XANAX GIVEN. PT MUCH CALMER NOW AND SLEEPING. DENIES CHEST ACHING.
[2018-02-07] VITALS: BP 139/49
[2018-02-07 04:00] VITALS: BP 116/51
[2018-02-07 04:25] LABS: HEMOGLOBIN 7.5 gm/dL (12.0-15.0); MCH 33.3 pg (26.0-34.0); MCHC 34.2 g/dL (28.0-37.0); MCV 97.3 fL (80.0-100.0); RBC 2.26 mil/uL (4.20-5.00); RDW-CV 13.4 % (10.5-14.5); WBC 5.6 thou/uL (4.0-11.0)
[2018-02-07 04:31] LABS: POTASSIUM 3.9 mmol/L (3.5-5.1)
--- NOTE | 2018-02-07 06:08 | NUR ---
SLEPT WELL TONIGHT. GAIT STEADY TO AND FROM BR. RT GROIN SOFT WITH HEMATOMA UNCHANGED. TELEMETRY CONT SHOWING SR WITH FREQ PAC. HS GOALS OF REST AND SAFETY ACHIEVED. HOURLY ROUNDING OBSERVED.
[2018-02-07 08:05] VITALS: BP 115/43
--- NOTE | 2018-02-07 08:05 | NUR ---
RECEIVED REPORT FROM LEE AND ASSUMED CARE OF PT @ 6696.PT IS A/O,BP SLIGHTLY LOW @ 115/43.TRACING SR WITH PACS ON THE MONITOR.LUNG SOUNDS ARE CLEAR.IV RIGHT AC PATENT WITH NS RUNNING @ 80ML/HR.PT IS CALM AND COOPERATIVE WITH NO C/O PAIN AT TIME OF ASSESSMENT.PT IS UP WITH ABS TO BATHROOM.PT LEFT RESTING IN BED WITH CALL LIGHT WITHIN REACH.CATH SITE OBSERVED DURING BEDSIDE REPORTING RESULTING IN SOFT WITH BRUISING.WILL CONTINUE TO MONITOR.
[2018-02-07 10:29] VITALS: BP 116/47
[2018-02-07] MEDS ORDERED: EFFIENT10 MG PO (10:43)
--- NOTE | 2018-02-07 11:09 | CARD ---
[address] [address] CARDIAC CATH REPORT Name: MARK HINDS Room: [address] IN [facility]#: [id number] Admission: 02/05/18 Attend Phys: Robbi Reed MD, Discharge: Date of : 47 Report #: [id number] THIS REPORT FOR: //name// APPROVED REPORT Study performed: 02/05/2018 13:20:33 Patient Details Patient Status: Out-Patient Room #: The patient is a 72 year-old female Event Personnel Robbi Reed Principal Technical Writer, Melanie Puentes RN Precision Lens Generator, Yonny Thornton Haley, Jessica RTR Monitor, Monalisa Martinez Monitor Procedures Performed Art Access - R femoral artery*, Coronary angiography; atherectomy with stenting of the proximalmid LAD; drug-eluting stent deployment at a more distal mid LAD site Indication Positive stress test Risk Factors Hypercholesterolemia, Hypertension Previous Procedures/Diagnoses Previous PCI Admission/Lab Medications/Medications given during procedure Aspirin, Platelet Aff. Inhib., Heparin Unfract. Procedure Narrative The patient was brought electively to the Cardiac Catheterization Laboratory and was prepped and draped in a sterile manner. The right femoral was infiltrated with 2% Lidocaine subcutaneous anesthesia. A 6fr Ultimum Sheath sheath was inserted into the right femoral artery. Coronary angiography was performed using coronary diagnostic catheters. The left coronary system was accessed and visualized with a Diagnostic 6FR jl 4 catheter. The patient tolerated the procedure well and there were no complications associated with the procedure. Intraoperative Conscious Sedation Sedation start time: 14:12 Case end Time: [place] [address] CARDIAC CATH REPORT Name: SHREEAYDEMARK Room: [address]#: [id number] Admission: 02/05/18 Attend Phys: Robbi Reed MD, Discharge: Date of : 47 Report #: [id number] 15:38 Fentanyl 125 mcg Versed 6 mg Fluoro Time: 22.6 minutes Dose: DAP 2676 cGycm2 126 mGy Contrast Type and Amount: Visipaque 520 ml Coronary Angiography The patient's coronary anatomy is right dominant. Diagnostic Cath Left Main 0% narrowing LAD 80% heavily calcified proximalmid LAD stenosis with an 80% mid LAD narrowing in a more distal portion Circumflex 30% proximal narrowing Right Coronary Total occlusion of the midportion of the dominant right coronary artery with [id number] collaterals filling the distal right coronary system Left Ventriculography Left Ventriculography was not performed. Hemodynamics The aortic pressure is 109/50 mmHg with a mean of mmHg. PCI Technique Lesion Anticoagulation was achieved with Heparin. Patient [place] [address] units. Percutaneous coronary intervention was performed on the mid left anterior descending artery segment. The lesion stenosis prior to intervention was 80% with TATIANNA 3 flow. A 7FR XBLAD 3.5 Guide Catheter was used to engage the ostium. A IG: [employer] Flex 300cm Interventional Guidewire was used to cross the lesion. STENT DEPLOYMENT A drug-eluting stent Xience Alpine RX 2.25X12 was inserted and inflated up to 10atm for 7seconds. Additional Inflation: 12atm for 6seconds. Final angiography reveals 0 % stenosis with TATIANNA 3 flow. PCI Technique Lesion 2 Percutaneous Coronary Intervention was performed on the proximalmid left anterior descending artery segment; a severely calcified lesion. The lesion stenosis prior to intervention was 80% with TATIANNA 3 flow. A 7FR XBLAD 3.5 Guide Catheter was used [place] [address] CARDIAC CATH REPORT Name: OSEIANDREY MCDUFFIEJaimie Greco Room: [address] IN [facility].#: [id number] Admission: 02/05/18 Attend Phys: Robbi Reed MD, Discharge: Date of : 47 Report #: [id number] Balloon Dilation Atherectomy was performed utilizing orbital atherectomy with 5 runs at low speed across the heavily calcified segment of the proximalmid left anterior descending coronary artery; atherectomy was followed by angioplasty with a 2.75 x 12 NC trek inflated to 14-16 jericho followed by deployment of drug-eluting stent Stent Deployment A drug-eluting stent Xience Alpine RX 2.5X28 was inserted and inflated up to 14.00atm for 10seconds. Additional Inflation: 14.00atm for 7seconds. Additional Inflation: 17.00atm for 9seconds. 18 JERICHO X 8 SECONDS Final angiography reveals 10 % stenosis with TATIANNA 3 flow. Conclusion #1 significant atherosclerotic coronary artery disease characterized by the following: A 80% calcified proximalmid LAD stenosis with focal mid LAD narrowing of 80% magnitude distal to this lesion B 30% proximal circumflex narrowing C dominant right heart coronary artery totally occluded in its midportion with xicz-[id number] collaterals filling the distal right coronary artery #2 successful percutaneous coronary intervention with orbital atherectomy followed by angioplasty and stenting of the 80% stenosed proximalmid LAD segment with 10% residual following final stent deployment #3 successful percutaneous coronary intervention of the more distal mid LAD site with deployment of drug-eluting stent at the site of 80% narrowing with 0% residual narrowing and TATIANNA-3 flow the distal vessel Recommendations Cardiac Risk Reduction Program Aggressive Medical Therapy Medications Administered Aspirin (any) [place] [address] CARDIAC CATH REPORT Name: MARK HINDS Room: [address]#: [id number] Admission: 02/05/18 Attend Phys: Robbi Reed MD, Discharge: Date of : 47 Report #: [id number] Prasugrel Diagnostic Cath Approved by: Robbi Reed MD Date/Time: 7/27/18 at 1106 hrs. <ELECTRONICALLY SIGNED> By: Robbi Reed MD, [facility] 02/07/18 1108 1108 [id number] Reed MD, FAC /INF
--- NOTE | 2018-02-07 11:43 | NUR ---
PT OK FOR DISCHARGE.PAPERWORK COMPLETED AND GIVEN TO PT.SCRIPTS GIVEN WITH EDUCATION.IV REMOVED.HEART MONITOR REMOVED AND RETURNED TO NURSING STATION.ALL PERSONAL BELONGINGS PACKED AND TAKEN WITH PT.WHEELED OUT TO PERSONAL VEHICLE BY NURSING STAFF.
--- NOTE | 2018-02-08 12:28 | D ---
[address] [address] DISCHARGE SUMMARY Name: MARK HINDS Room: [address] M..#: [id number] Admission: 02/05/18 Attend Phys: Robbi Reed MD, Discharge: 02/07/18 Date of : 47 Report #: [id number] THIS REPORT FOR: //name// CC: Robbi VieyraJuan Miguel Van DATE OF SERVICE: 02/07/2018 FINAL DISCHARGE DIAGNOSES: 1. Abnormal nuclear stress test. 2. Angina. 3. Coronary artery disease. 4. Status post atherectomy with stenting of a high-grade proximal-mid left anterior descending stenosis. 5. Hypertension. 6. Hyperlipoproteinemia. 7. Mild aortic insufficiency. PROCEDURES: On 02/05/2018 - left heart catheterization, selective coronary arteriography and atherectomy with stenting of a high-grade proximal-mid LAD stenosis. HOSPITAL COURSE: The patient is a 72-year-old female, patient of Dr. Van, with an abnormal stress test. Recent catheterization revealed a high-grade proximal-mid heavily calcified stenosis. It was dilatable, but not stentable by virtue of the magnitude of calcification. She was readmitted on 02/05/2018 for re-catheterization. This was done and I performed atherectomy with five runs of an orbital atherectomy device, followed by stenting of the proximal-mid and mid LAD slightly further down the artery with a total of 2 drug-eluting stents deployed and 0% residual narrowing with TATIANNA 3 flow of the distal vessel. Post-procedurally, the patient developed a late femoral bleed and required significant infusion of crystalloid, manual compression and a transitory low-dose dopamine. By the next morning, systemic pressure returned to normal and she was quite comfortable. Her hemoglobin did fall to 7.5 grams %. Electrolytes on the day of discharge were sodium 140, chloride 111, potassium 3.9, BUN 16 and creatinine 1.0. Hemoglobin 7.5, white blood cell count 5600 with hematocrit of 22.0 and 146,000 platelets. The patient was discharged to home in stable condition on 02/07/2018 on the following medications: Allopurinol 200 mg b.i.d., aspirin 81 mg daily, gemfibrozil 600 mg b.i.d., losartan 100 mg daily, metoprolol succinate 25 mg b.i.d., prasugrel or Effient 10 mg daily with a 60 mg loading dose, rosuvastatin 10 mg daily, spironolactone 25 mg daily, trazodone 50 mg at bedtime and ferrous gluconate 300 mg b.i.d. [place] [address] [place] [address] DISCHARGE SUMMARY Name: MARK HINDS Room: [address] IN [facility].#: [id number] Admission: 02/05/18 Attend Phys: Robbi Reed MD, Discharge: 02/07/18 Date of : 47 Report #: [id number] She is scheduled to return to see me on 02/13/[address] [facility] office at 10:20 a.m. and a CBC is to be obtained on 02/12/2018. The patient will then return to see Dr. Van for continuing care. Thus, the patient is discharged to home in stable condition on 02/07/2018 on the aforementioned medications with followup as iterated above. <ELECTRONICALLY SIGNED> By: Robbi Reed MD, FACC 02/08/18 1228 0942 [id number] Reed MD, FACC /nt
== END 2018-02-07 11:55 | disposition home or self-care (01) | DRG 246 ==
LOC: M.CL 11:42 → M.TBA-CV 15:56 → M.ICU 15:56 → M.2W 16:30 → M.ICU 19:10 → M.2W 02-06 14:54
PROVIDERS: ADMIT Internal Medicine
DX: I25.119 Atherosclerotic heart disease of native coronary artery with unspecified angina pectoris (principal); I50.33 Acute on chronic diastolic (congestive) heart failure; I10 Essential (primary) hypertension; I35.1 Nonrheumatic aortic (valve) insufficiency; E78.5 Hyperlipidemia, unspecified